=== PATIENT | female | born 2005 | race Caucasian/White ===

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

== ENCOUNTER 2024-11-12 10:05 | Outpatient (CLI) | payer BC, SELFPAY ==
--- NOTE | 2024-11-12 10:10 | ECG_ITS ---
Test Date: 2024-11-12 10:46:08 Measurements Intervals [place] Rate: 59 P: 59 HI: 169 QRS: 68 QRSD: 84 T: 62 QT: 393 QTc: 391 Interpretive Statements SINUS BRADYCARDIA POSSIBLE RIGHT VENTRICULAR CONDUCTION DELAY [RSR (QR) IN V1/V2] No previous ECG available for comparison Electronically Signed On 11-12-2024 13:49:33 CDT by Richy Troy M.D.
--- OUTSIDE RECORDS SUMMARY | 2024-11-12 10:10 | XMS_ITS | Clinical Summary ---
Author Organization [facility] Address [address] [place] [address] Care Team Providers Care Industrial Design Engineer Name Role Phone Shyanne New APRN-DIRECTOR OF GLOBAL SALES Primary Care Provid er Source Comments [facility],non-owned Affiliates and Associated Physician Practices is amultiple site organization consisting of ambulatory clinics and hospital sitesin [place], [place], [place] and [place]. This disclosure is being madepursuant to the Care Everywhere program and may not contain all information available regarding this patient. Last updated 18.[facility] Allergies No known active allergies Medications * Be aware that medications may not be up to date on this document. Alwaysverify current medications with the patient. ondansetron, disintegrating, (ZOFRAN ODT) 4 MG tablet 07/28/2021 Active Active Problems Problem Noted Date Diagnosed Date Low TSH level 08/17/2021 Social History Tobacco Use Types Packs/Day Years Used Date Smoking Tobacco: Never Assessed Comments No Sex and Gender Information Value Date Recorded Sex Assigned at Not on file Legal Sex Female 5:43 AM CORN CUTTER OPERATOR Gender Identity Not on file Sexual Orientation Not on file Last Filed Vital Signs Vital Sign Reading Time Taken Comments Blood Pressure 98/62 08/18/2021 9:36 AM CORN CUTTER OPERATOR Pulse 68 08/18/2021 9:36 AM CORN CUTTER OPERATOR Temperature - - Respiratory Rate 20 08/18/2021 9:36 AM CORN CUTTER OPERATOR Oxygen Saturation - - Inhaled Oxygen Concentration - - Weight 51.1 kg (112 lb 10.5 oz) 08/18/2021 9:36 AM CORN CUTTER OPERATOR Height 158.5 cm (5' 2.4) 08/18/2021 9:36 AM CORN CUTTER OPERATOR Body Mass Index 20.34 08/18/2021 9:36 AM CORN CUTTER OPERATOR Plan of Treatment Health Maintenance Due Date Last Done Comments HIV SCREENING 2019 HPV VACCINE (1 - 3-dose series) 2019 CHLAMYDIA/GONORRHEA SCREENING 2020 MENINGOCOCCAL (Group B) VACC INE SHARED DECISION-MAKING (1 of 2 - Standard) 2020 HEPATITIS C SCREENING 07/18/2022 DTAP/TDAP/TD VACCINES (1 - Tdap) 2023 HEPATITIS B VACCINE (1 of 3 - 19+ 3-dose series) 2023 COVID-19 VACCINE (1 - 2023-2 5 season) 2024 DEPRESSION SCREENING 06/19/2024 INFLUENZA VACCINE (Season Ended) 2025 ZOSTER VACCINE (1 of 2) 2054 HIB VACCINE Aged Out No longer eligi ble based on patient's age to complete this topic MENINGOCOCCAL GROUPS A/C/Y/W VACCINE Aged Out No longer eligible b ased on patient's age to complete this topic PNEUMOCOCCAL VACCINE Aged Out No long er eligible based on patient's age to complete this topic Insurance [employer] Care Teams Industrial Design Engineer Relationship Specialty Start Date End Date Shyanne New, RADIOPHONE OPERATOR-DIRECTOR OF GLOBAL SALES [address] [place] [address] PCP - General Nurse Practitioner Family 07/29/21
== END 2024-11-12 10:06 | disposition home or self-care (01) ==
PROVIDERS: PCP Nurse Practitioner Family; Visit Provider Nurse Practitioner Family
DX: R07.89 Other chest pain (principal); R00.1 Bradycardia, unspecified
CPT/HCPCS: 93005

== ENCOUNTER 2025-03-14 06:58 | Outpatient (CLI) | payer BC, SELFPAY ==
--- OUTSIDE RECORDS SUMMARY | 2025-03-14 07:00 | XMS_ITS | Clinical Summary ---
Author Organization [facility] Address [address] [place] [address] Care Team Providers Care Parachute Mender Name Role Phone Shyanne New APRN-NEUROPHYSIOLOGICAL TECHNICIAN Primary Care Provid er Source Comments [facility],non-owned Affiliates and Associated Physician Practices is amultiple site organization consisting of ambulatory clinics and hospital sitesin [place], [place], [place] and [place]. This disclosure is being madepursuant to the Care Everywhere program and may not contain all information available regarding this patient. Last updated 18.[facility] Allergies No known active allergies Medications * [...] on file Legal Sex Female 5:43 AM TERMINAL COMPUTER OPERATOR Gender Identity Not on file Sexual Orientation Not on file Last Filed Vital Signs Vital Sign Reading Time Taken Comments Blood Pressure 98/62 08/18/2021 9:36 AM TERMINAL COMPUTER OPERATOR Pulse 68 08/18/2021 9:36 AM TERMINAL COMPUTER OPERATOR Temperature - - Respiratory Rate 20 08/18/2021 9:36 AM TERMINAL COMPUTER OPERATOR Oxygen Saturation - - Inhaled Oxygen Concentration - - Weight 51.1 kg (112 lb 10.5 oz) 08/18/2021 9:36 AM TERMINAL COMPUTER OPERATOR Height 158.5 cm (5' 2.4) 08/18/2021 9:36 AM TERMINAL COMPUTER OPERATOR Body Mass Index 20.34 08/18/2021 9:36 AM TERMINAL COMPUTER OPERATOR Plan of Treatment Health Maintenance Due Date Last Done Comments HIV SCREENING 2019 HPV VACCINE (1 - 3-dose series) 2019 CHLAMYDIA/GONORRHEA SCREENING 2020 MENINGOCOCCAL (Group B) VACC INE SHARED DECISION-MAKING (1 of 2 - Standard) 2020 HEPATITIS C SCREENING 07/18/2022 DTAP/TDAP/TD VACCINES (1 - Tdap) 2023 HEPATITIS B VACCINE (1 of 3 - 19+ 3-dose series) 2023 DEPRESSION SCREENING 06/19/2024 COVID-19 VACCINE (1 - 2023-2 5 season) 2025 INFLUENZA VACCINE (#1) 2025 ZOSTER VACCINE (1 of 2) 2054 HIB VACCINE Aged Out No longer eligi ble based on patient's age to complete this topic MENINGOCOCCAL GROUPS A/C/Y/W VACCINE Aged Out No longer eligible b ased on patient's age to complete this topic PNEUMOCOCCAL VACCINE Aged Out No long er eligible based on patient's age to complete this topic Insurance [employer] Care Teams Parachute Mender Relationship Specialty Start Date End Date Shyanne New, INCIDENT RESPONSE COORDINATOR-NEUROPHYSIOLOGICAL TECHNICIAN [address] [place] [address] PCP - General Nurse Practitioner Family 07/29/21
[2025-03-14] MEDS: COSYNTROPIN 0.25 MG/ML VIAL IM (07:10)
[2025-03-14 07:58] LABS: Free T4 Free Thyroxine 1.34 ng/dL (0.78-2.19)
[2025-03-14 08:09] LABS: Cortisol 60 Minute 13.60 ug/dL; Thyroid Stimulating Hormone 0.629 uIU/mL (0.465-4.680)
[2025-03-14 09:26] LABS: Cortisol 60 Minute 24.10 ug/dL
[2025-03-14 13:04] LABS: Total Triiodothyronine (T3) 1.52 NG/ML (0.82-1.58)
== END 2025-03-14 06:59 | disposition home or self-care (01) ==
LOC: ANHLAB 06:59
PROVIDERS: PCP Nurse Practitioner Family; Visit Provider Internal Medicine
DX: R79.89 Other specified abnormal findings of blood chemistry (principal); R63.4 Abnormal weight loss; E03.9 Hypothyroidism, unspecified; R94.6 Abnormal results of thyroid function studies; E16.1 Other hypoglycemia
CPT/HCPCS: 36415; 82533; 83520; 84439; 84443; 84445; 84480; 96372; J0834

== ENCOUNTER 2025-03-31 06:38 | Outpatient (CLI) | payer BC, SELFPAY ==
--- NOTE | ~2025-03-31 | NM_ITS ---
EXAMINATION: NM thyroid scan w uptake DATE: 04/01/2025 10:33 INDICATION: Other specified abnormal findings of blood chemistry. COMPARISON: Thyroid ultrasound 08/05/2022 TECHNIQUE: 0.520 mCi I-123 was administered orally. Scintigraphic images of the thyroid gland were obtained at 24 hours. Thyroid uptake was calculated by the technologist. FINDINGS: The thyroid uptake is 16% (normal 10-30%), with the right lobe measuring 16% uptake and the left 31%. There is no focal area of decreased or increased activity to suggest hypofunctioning or hyperfunctioning nodule. IMPRESSION: 1. Borderline increased 24-hour iodine uptake, likely not clinically significant given the normal thyroid function tests on 03/14/2025. Reviewed, dictated and finalized at location E. IMPRESSION: 1. Borderline increased 24-hour iodine uptake, likely not clinically significa nt given the normal thyroid function tests on 03/14/2025.
--- OUTSIDE RECORDS SUMMARY | 2025-03-31 06:40 | XMS_ITS | Clinical Summary ---
Author Organization [facility] Address [address] [place] [address] Care Team Providers Care Policy Checker Name Role Phone Shyanne New APRN-COMMERCIAL FISHING VESSEL OPERATOR Primary Care Provid er Source Comments [facility],non-owned Affiliates and Associated Physician Practices is amultiple site organization consisting of ambulatory clinics and hospital sitesin [place], [place], [place] and [place]. This disclosure is being madepursuant to the Care Everywhere program and may not contain all information available regarding this patient. Last updated 18.[facility] Allergies No known active allergies Medications * [...] on file Legal Sex Female 5:43 AM TECHNOLOGY MANAGER Gender Identity Not on file Sexual Orientation Not on file Last Filed Vital Signs Vital Sign Reading Time Taken Comments Blood Pressure 98/62 08/18/2021 9:36 AM TECHNOLOGY MANAGER Pulse 68 08/18/2021 9:36 AM TECHNOLOGY MANAGER Temperature - - Respiratory Rate 20 08/18/2021 9:36 AM TECHNOLOGY MANAGER Oxygen Saturation - - Inhaled Oxygen Concentration - - Weight 51.1 kg (112 lb 10.5 oz) 08/18/2021 9:36 AM TECHNOLOGY MANAGER Height 158.5 cm (5' 2.4) 08/18/2021 9:36 AM TECHNOLOGY MANAGER Body Mass Index 20.34 08/18/2021 9:36 AM TECHNOLOGY MANAGER Plan of Treatment Health Maintenance Due Date [...] this topic Insurance [employer] Care Teams Policy Checker Relationship Specialty Start Date End Date Shyanne New, ANIMAL NURSERY WORKER-COMMERCIAL FISHING VESSEL OPERATOR [address] [place] [address] PCP - General Nurse Practitioner Family 07/29/21
== END 2025-03-31 06:39 | disposition home or self-care (01) ==
PROVIDERS: PCP Nurse Practitioner Family; Visit Provider Nurse Practitioner Family
DX: R79.89 Other specified abnormal findings of blood chemistry (principal)
CPT/HCPCS: 78014; A9516